=== PATIENT | female | born 1955 | race Caucasian/White ===

== ENCOUNTER 2017-06-11 19:23 | Emergency (ER) | payer OTHER ==
[~2017-06-11] VITALS: Ht 162.6 cm; Wt 127.8 kg
[2017-06-11] MEDS ORDERED: FLEXERIL10 MG PO (20:31)
[2017-06-11 20:43] VITALS: BP 162/79
== END 2017-06-11 21:10 | disposition home or self-care (01) ==
LOC: EME → EDBD 19:23 → EME 19:23
DX: M54.6 Pain in thoracic spine (principal); M25.511 Pain in right shoulder; M25.512 Pain in left shoulder; R20.2 Paresthesia of skin; V43.52XA Car driver injured in collision with other type car in traffic accident, initial encounter; Y92.410 Unspecified street and highway as the place of occurrence of the external cause; G89.29 Other chronic pain; M54.5 Low back pain
CPT/HCPCS: 99281; 99284